=== PATIENT | male | born 1955 | race Caucasian/White ===

== ENCOUNTER 2016-08-06 07:21 | Day surgery (SDC) | payer BC ==
[~2016-08-06 07:21] MED LIST: LIDOCAINE W/ SODIUM BICARB 0.5 ML SYR ONE; Lactated Ringers 1,000 ML PRIMARY IV ONE; fentaNYL Inj 100 MCG/2 ML VIAL ONE
--- NOTE | 2016-08-06 08:16 | GEN.OPNOTE ---
Colonoscopy Procedure Note Surgery Date: 08/06/16 Preoperative Diagnosis: Colon cancer surveillance Postoperative Diagnosis: Normal colon Procedure: Colonoscopy Surgeon: Avinash Garcia MD Anesthesia Provider: John Franklin CRNA Anesthesia Type: MAC Indications: Cancer surveillance Findings: Prep : Excellent Cecum : Scope was advanced to the cecum cecal anatomy identified. The scope could not get to the point where can see directly behind the ileocecal valve. They do not see anything suspicious in the cecum Ascending : Ascending colon was within normal limits no polyps tumors or masses Transverse : Transverse colon was within normal limits no polyps tumors or cancers Sigmoid : Descending; free from disease Rectum : Rectum free from disease Digital Rectal Exam : No masses on rectal examination prostate smooth and regular A lubricated flexible colonoscope was inserted and passed to the blind end of the cecum. Additional Details: Colonoscopy in 10 years
--- NOTE | 2016-08-06 08:16 | MINORPROC ---
Outpatient History & Physical Chief Complaint: Need a screening colonoscopy Past History: No subcutaneous medical problems History: General: WNL, HEENT: WNL, Respiratory: WNL, Cardiovascular: WNL, Gastrointestinal: WNL Physical Exam: General: WNL, Chest/Lungs: WNL, Heart: WNL Home Medications: Home Medications Medication Instructions Recorded Confirmed Type Multivitamin [Multi-Vitamin Daily] 1 each PO DAILY 08/06/16 08/06/16 History Allergies/Adverse Reactions: Allergies Allergy/AdvReac Type Severity Reaction Status Date / Time No Known Allergies Allergy Verified 08/06/16 07:37 Impression / Plan: Screening for colon cancer. The patient will need a colonoscopy. The risks of the procedure and benefits were discussed with the patient. I have discussed the pathophysiology between polyps and colon cancer. I also discussed the reasons why we use a colonoscopy for screening method versus the other screening methods are available. The patient like to proceed with a colonoscopy, The procedure reset up at first available date. Transfusion: Transfusion Not Anticipated Anesthesia Plans: Sedation ASA Class: Class 1 : Normal, Healthy Patient
[2016-08-06 09:21] VITALS: RESP 14; TEMP 97.2
== END 2016-08-06 08:35 | disposition home or self-care (01) ==
LOC: SDSC 07:21
PROVIDERS: ATTEND Surgery
DX: Z12.11 Encounter for screening for malignant neoplasm of colon (principal)
CPT/HCPCS: 45378; J2704; J3010; J7120

== ENCOUNTER → 2016-08-15 | Outpatient (CLI) | payer BC ==
[2016-08-15 09:33] LABS: HEMOGLOBIN 14.6 g/dL (14.0-18.0); MEAN CORPUSCULAR HEMOGLOBIN 30.8 PG (27-31); MEAN PLATELET VOLUME 9.1 FL (7.4-12.2); RDW COEFFICIENT OF VARIATION 12.4 % (11.5-14.5); RED BLOOD COUNT 4.74 10^6/uL (4.70-6.10); WHITE BLOOD COUNT 7.75 10^3/uL (4.8-10.8)
[2016-08-15 09:37] LABS: BILIRUBIN,URINE NEGATIVE (NEG); CLARITY,URINE CLEAR (CLEAR); GLUCOSE, URINE (UA) NEGATIVE (NEG); LEUKOCYTE ESTERASE ,URINE LARGE (NEG); NITRATE,URINE NEGATIVE (NEG); OCCULT BLOOD,URINE MODERATE (NEG); PH,URINE 5.5 (5.0-8.5); PROTEIN,URINE TRACE mg/dl (NEG); UROBILINOGEN,URINE 0.2 mg/dL (0.2)
[2016-08-15 09:54] LABS: URINE SAMPLE TYPE CLEAN CATCH URINE
[2016-08-15 10:03] LABS: BACTERIA,URINE MANY; RBC,URINE 30-40 /hpf; WBC,URINE PACKED
== END ==
LOC: LAB 09:19
PROVIDERS: ATTEND Family Medicine
DX: R30.0 Dysuria (principal); Z12.5 Encounter for screening for malignant neoplasm of prostate; F17.220 Nicotine dependence, chewing tobacco, uncomplicated
CPT/HCPCS: 36415; 81001; 85027; 87088; 87185; 87205; G0103